=== PATIENT | female | born 1995 ===

== ENCOUNTER 2022-12-25 23:32 | Emergency (ER) | payer OTHER ==
[2022-12-25] MEDS ORDERED: NA CHLORIDE 0.9% 1,000 ML ONE (23:51)
[2022-12-25 23:58] LABS: Absolute Lymphocytes (CBC) 1.6 K/uL (0.7-4.9); Hematocrit 41.2 % (36.0-45.0); MCV 87.2 fL (80-100); MPV 7.7 fL (7.6-11.3); RBC Red Blood Cell Count 4.72 M/uL (3.86-4.86)
[2022-12-26 00:01] LABS: Specific Gravity 1.003 (1.005-1.030)
[2022-12-26 00:02] LABS: Specific Gravity < 1.005 (1.005-1.030); Urine Bacteria <20 /HPF (<20); Urine Bilirubin NEGATIVE (Negative); Urine Blood Negative (Negative); Urine Clarity Turbid (Clear); Urine Color Colorless (Yellow); Urine Glucose NEGATIVE (Negative); Urine Protein NEGATIVE (Negative); Urine RBC <5 /HPF (None Seen); Urine Urobilinogen Normal (Normal)
[2022-12-26 00:08] LABS: Barbiturates NEGATIVE (NEGATIVE); Benzodiazepines NEGATIVE (NEGATIVE); Cocaine NEGATIVE (NEGATIVE); METHAMPHETAM NEGATIVE (NEGATIVE); Methadone NEGATIVE (NEGATIVE); Opiates NEGATIVE (NEGATIVE); Phencyclidine NEGATIVE (NEGATIVE); THC Cannibis NEGATIVE (NEGATIVE)
[2022-12-26 00:21] LABS: ALT/SGPT 27 U/L (13-56); AST/SGOT 22 U/L (15-37); Albumin 4.7 g/dL (3.4-5.0); Alkaline Phosphatase 70 U/L (45-117); BUN Blood Urea Nitrogen 5 mg/dL (7-18); Bicarbonate 21 mEq/L (21-32); Bilirubin Direct < 0.1 mg/dL (0-0.2); Bilirubin Indirect, Calculated ND mg/dL (0.2-0.8); Bilirubin Total 0.2 mg/dL (0.2-1.0); Glomerular Filtration Rate 91 ml/min (=/>90); Glucose Level 118 mg/dL (74-106); Potassium 3.2 mEq/L (3.5-5.1); Protein, Total 8.6 g/dL (6.4-8.2); Sodium Level 144 mEq/L (136-145)
[2022-12-26 00:56] LABS: Protime INR 0.81
--- NOTE | 2022-12-26 02:53 | EDPHYS ---
Physician Documentation [facility] Name: Magalis Galdamez Age: 27 yrs Sex: Female : 1995 Arrival Date: 12/25/2022 Time: 23:32 Bed 15 Private MD: ED Physician Heri Horan HPI: 12/25 23:39 This 27 yrs old Female presents to ER via Unassigned with complaints of sp4 intoxication, suicidal thoughts . 23:40 . sp4 12/26 02:40 27-year-old female who presents with EMS for alcohol intoxication and depression. sp4 Patient has made some suicidal statements to the police and EMS. Patient is currently moving into a new apartment and away from an unstable housing situation. Patient states she had a bottle of wine. She denied any prior suicide attempts. At this time she denies suicidal ideation or plan. Patient was asked if she would like to be assessed for admission to psychiatric hospital and she has denied that she wants to be sent to psychiatric hospital. . 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 - Social history:: Smoking status: Reported history of juuling and/or vaping. Patient uses alcohol, only on a social basis. Patient/guardian denies using street drugs. - Family history:: not pertinent. ROS: 12/26 02:40 Constitutional: Negative for fever, chills, and weight loss, Eyes: Negative for injury, sp4 pain, redness, and discharge, ENT: Negative for injury, pain, and discharge, Neck: Negative for injury, pain, and swelling, Cardiovascular: Negative for chest pain, palpitations, and edema, Respiratory: Negative for shortness of breath, cough, wheezing, and pleuritic chest pain, Abdomen/GI: Negative for abdominal pain, nausea, vomiting, diarrhea, and constipation, Back: Negative for injury and pain, : Negative for injury, bleeding, discharge, and swelling, MS/Extremity: Negative for injury and deformity, Skin: Negative for injury, rash, and discoloration, Neuro: Negative for headache, weakness, numbness, tingling, and seizure, Psych: Positive for alcohol intoxication, negative for suicidal ideation or plan Allergy/Immunology: Negative for hives, rash, and allergies Endocrine: Negative for neck swelling, polydipsia, polyuria, polyphagia, and weight changes Hematologic/Lymphatic: Negative for swollen nodes, abnormal bleeding, and unusual bruising Exam: 02:40 Constitutional: This is a well developed, well nourished patient who is awake, alert, sp4 and in no acute distress. Patient is moderately intoxicated Head/Face: Normocephalic, atraumatic. Eyes: Pupils equal round and reactive to light, extra-ocular motions intact. Lids and lashes normal. Conjunctiva and sclera are not injected. Cornea within normal limits. Periorbital areas with no swelling, redness, or edema. ENT: Nares patent. No nasal discharge, no septal abnormalities noted. Tympanic membranes are normal and external auditory canals are clear. Oropharynx with no redness, swelling, or masses, exudates, or evidence of obstruction, uvula midline. Mucous membranes moist. Neck: Trachea midline, no thyromegaly or masses palpated, and no cervical lymphadenopathy. Supple, full range of motion without nuchal rigidity, or vertebral point tenderness. Chest/axilla: Normal chest wall appearance and motion. Nontender with no deformity. No lesions are appreciated. Cardiovascular: Regular rate and rhythm with a normal S1 and S2. No gallops, murmurs, or rubs. Normal PMI, no JVD. No pulse deficits. Respiratory: Lungs have equal breath sounds bilaterally, clear to auscultation and percussion. No rales, rhonchi or wheezes noted. No increased work of breathing, no retractions or nasal flaring. Abdomen/GI: Soft, non-tender, with normal bowel sounds. No distension or tympany. No guarding or rebound. No evidence of tenderness throughout. Back: No spinal tenderness. No costovertebral tenderness. Skin: Warm, dry with normal turgor. Normal color with no rashes, no lesions, and no evidence of cellulitis. MS/ Extremity: Pulses equal, no cyanosis. Neurovascular intact. Full, normal range of motion. Neuro: Awake and alert, GCS 15, oriented to person, place, time, and situation. Cranial nerves II-XII grossly intact. Motor strength 5/5 in all extremities. Sensory grossly intact. Psych: Awake, alert, with orientation to person, place. Intoxication limits examination, patient denied suicidal ideation or plan. 02:40 ECG was reviewed by the Attending Physician. EKG time 2359, EKG reveals sinus rhythm sp4 with a rate of 100, no ST elevation or depression, no ectopy overall normal EKG Vital Signs: 00:02 BP 129 / 79; Pulse 110; Resp 19 S; Temp 98.4(TE); Pulse Ox 98% on R/A; Weight 61.23 kg ll3 (R); Height 5 ft. 4 in. (R); 03:44 BP 123 / 71; Pulse 76; Resp 16; Pulse Ox 98% on R/A; ll3 00:02 Body Mass Index 23.17 (61.23 kg, 162.56 cm) ll3 MDM: 12/25 23:40 Patient medically screened. sp4 12/26 02:40 Differential Diagnosis altered mental status. Differential Diagnosis Alcohol sp4 intoxication, substance abuse, depression, anxiety. Data reviewed: vital signs, nurses notes. Data reviewed: lab test result(s), CBC, electrolytes, hepatic panel, urinalysis, urine drug screen, UPT: negative. 02:49 ED course: Patient's labs reveal alcohol level 222, otherwise is unremarkable. Patient sp4 explicitly denied homicidal or suicidal ideation or plan. Patient was asked if she would like to be transferred to psychiatric hospital and she has declined help at this time. Patient states she would like to go home. Since there is no homicidal or suicidal ideation patient is stable for discharge home at this time if someone can pick her up from the emergency room. . 12/25 23:40 Order name: Acetaminophen; Complete Time: [facility] 12/25 23:40 Order name: Basic Metabolic Panel; Complete Time: [facility] 12/25 23:40 Order name: CBC with Diff; Complete Time: [facility] 12/25 23:40 Order name: ETOH Level; Complete Time: [facility] 12/25 23:40 Order name: Hepatic Function; Complete Time: [facility] 12/25 23:40 Order name: PT-INR; Complete Time: :58 4 12/25 23:40 Order name: Test, Urine; Complete Time: :58 4 12/25 23:40 Order name: Ptt, Activated; Complete Time: :58 4 12/25 23:40 Order name: Salicylate; Complete Time: :58 sp4 12/25 23:40 Order name: Urinalysis w/ reflexes; Complete Time: :58 sp4 12/25 23:40 Order name: Urine Drug Screen; Complete Time: :58 4 12/25 23:40 Order name: EKG; Complete Time: 23:41 4 12/25 23:40 Order name: EKG - Nurse/Tech; Complete Time: 23:55 sp4 12/25 23:40 Order name: IV Saline Lock; Complete Time: 23:48 4 12/25 23:40 Order name: Labs collected and sent; Complete Time: 23:48 4 12/25 23:40 Order name: Suicide Precautions; Complete Time: 23:55 4 12/25 23:40 Order name: Suicide Screening ([place]); Complete Time: 23:55 4 EC:40 Rate is 100 beats/min. Rhythm is regular, Normal Sinus Rhythm. QRS [place] is Normal. [place] sp4 interval is normal. QRS interval is normal. QT interval is normal. T waves are Normal. No ST changes noted. Clinical impression: Normal ECG. Interpreted by me. Administered Medications: 12/25 23:53 Drug: NS 0.9% IV 1000 ml Route: IV; Rate: 1 bolus; Site: right antecubital; mb9 12/26 01:30 Follow up: Response: No adverse reaction; IV Status: Completed infusion; IV Intake: ll3 1000ml Disposition Summary: 12/26/22 02:52 Discharge Ordered Location: Home sp4 Problem: new sp4 Symptoms: have improved sp4 Condition: Stable sp4 Diagnosis - Alcohol use, unspecified with intoxication, uncomplicated sp4 - Emotional upset sp4 Followup: sp4 - With: Oswaldo Pelletier MD - When: 7 - 10 days - Reason: Recheck today's complaints Discharge Instructions: - Discharge Summary Sheet sp4 - Alcohol Intoxication, [id number] sp4 Forms: - [email or web address] sp4 Signatures: Dispatcher [employer] Renetta Olmstead RN RN lg3 Fatoumata Ortega RN RN mb9 Heri Horan MD MD sp4 Rebecca Mckeon RN ll3
--- NOTE | 2022-12-26 02:53 | ER ---
Nurse's Notes [facility] Name: Magalis Galdamez Age: 27 yrs Sex: Female : 1995 Arrival Date: 12/25/2022 Time: 23:32 Bed 15 Private MD: Diagnosis: Alcohol use, unspecified with intoxication, uncomplicated;Emotional upset Presentation: 12/25 23:39 Chief complaint: EMS states: toned out by PD for suicidal PT. 3rd constitution party stated that PT lg3 has stated that she wanted to kill herself and she would do so by hanging. PT states that she is in the process of moving in with Ex and a verbal altercation stated with best friend. PT became mad and upset so she began drinking. PT admits to drinking an entire bottle of wine and probably said she was going to kill herself but doesn't remember. Coronavirus screen: Client denies travel out of the [place] in the last 14 days. At this time, the client does not indicate any symptoms associated with coronavirus-19. Ebola Screen: No symptoms or risks identified at this time. Risk Assessment: Do you want to hurt yourself or someone else? Patient reports desire/thoughts of hurting themselves or someone else. Provider notified. Onset of symptoms was December 25, 2022. 23:39 Method Of Arrival: EMS: [facility] 23:39 Acuity: ALEXANDRA 2 lg3 12/26 00:27 Initial Sepsis Screen: Does the patient meet any 2 criteria? HR > 90 bpm. Yes Does the ll3 patient have a suspected source of infection? No. Patient's initial sepsis screen is negative. Triage Assessment: 12/25 23:43 General: Appears in no apparent distress. comfortable, Behavior is cooperative, crying, lg3 flat. Pain: Denies pain. EENT: No deficits noted. No signs and/or symptoms were reported regarding the EENT system. Neuro: No deficits noted. Ramos Agitation-Sedation Scale (RASS): 0 - Alert and Calm Level of Consciousness is awake, alert, obeys commands, Oriented to person, place, time, situation. Cardiovascular: No deficits noted. Respiratory: No deficits noted. Airway is patent Respiratory effort is even, unlabored, Respiratory pattern is regular, symmetrical. GI: No deficits noted. No signs and/or symptoms were reported involving the gastrointestinal system. : No deficits noted. No signs and/or symptoms were reported regarding the genitourinary system. Derm: No deficits noted. No signs and/or symptoms reported regarding the dermatologic system. Musculoskeletal: No deficits noted. No signs and/or symptoms reported regarding the musculoskeletal system. Circulation, motion, and sensation intact. Range of motion: intact in all extremities. 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 - Social history:: Smoking status: Reported history of juuling and/or vaping. Patient uses alcohol, only on a social basis. Patient/guardian denies using street drugs. - Family history:: not pertinent. Screenin/30 00:27 [facility] ED Fall Risk Assessment (Adult) History of falling in the last 3 months, ll3 including since admission No falls in past 3 months (0 pts) Confusion or Disorientation No (0 pts) Intoxicated or Sedated No (0 pts) Impaired Gait No (0 pts) Mobility Assist Device Used No (0 pt) Altered Elimination No (0 pt) Score/Fall Risk Level 0 - 2 = Low Risk Oriented to surroundings, Maintained a safe environment, Educated pt \T\ family on fall prevention, incl call for assistance when getting out of bed. Abuse screen: Denies threats or abuse. Denies injuries from another. Nutritional screening: No deficits noted. Tuberculosis screening: No symptoms or risk factors identified. Assessment: 00:28 General: Appears comfortable, Behavior is cooperative, agitated, anxious, crying. Pain: ll3 Denies pain. Neuro: Level of Consciousness is awake, alert, obeys commands, Oriented to person, place, time, situation. Cardiovascular: Patient's skin is warm and dry. Respiratory: Respiratory effort is even, unlabored, Respiratory pattern is regular, symmetrical. Derm: Skin is pink, warm \T\ dry. Vital Signs: 00:02 BP 129 / 79; Pulse 110; Resp 19 S; Temp 98.4(TE); Pulse Ox 98% on R/A; Weight 61.23 kg ll3 (R); Height 5 ft. 4 in. (R); 03:44 BP 123 / 71; Pulse 76; Resp 16; Pulse Ox 98% on R/A; ll3 00:02 Body Mass Index 23.17 (61.23 kg, 162.56 cm) ll3 ED Course: 12/25 23:39 Patient arrived in ED. lg3 23:39 Heri Horan MD is Attending Physician. sp4 23:39 Safety Checks: Personal items have been removed. The door is open or patient has been ll3 placed in a hallway bed/chair. There are no family/friend visitors at this time Sitter present at this time. 23:39 Patient has correct armband on for positive identification. Bed in low position. Call ll3 light in reach. Side rails up X 1. Adult w/ patient. Sitter at bedside. 23:43 Triage completed. lg3 23:43 Arm band placed on right wrist. lg3 23:47 Inserted saline lock: 20 gauge in right antecubital area, using aseptic technique. rv1 Blood collected. 23:48 Acetaminophen Sent. rv1 23:48 Basic Metabolic Panel Sent. rv1 23:48 CBC with Diff Sent. rv1 23:48 ETOH Level Sent. rv1 23:48 Hepatic Function Sent. rv1 23:48 PT-INR Sent. rv1 23:48 Test, Urine Sent. rv1 23:48 Ptt, Activated Sent. rv1 23:48 Salicylate Sent. rv1 23:48 Urinalysis w/ reflexes Sent. rv1 23:48 Urine Drug Screen Sent. rv1 12/26 00:02 Rebecca Mckeon, RN is Primary Nurse. ll3 00:28 No provider procedures requiring assistance completed. ll3 01:42 Appears to be sleeping. ll3 02:51 Oswaldo Pelletier MD is Referral Physician. sp4 03:43 IV discontinued, intact, bleeding controlled, No redness/swelling at site. Pressure ll3 dressing applied. Administered Medications: 12/25 23:53 Drug: NS 0.9% IV 1000 ml Route: IV; Rate: 1 bolus; Site: right antecubital; mb9 12/26 01:30 Follow up: Response: No adverse reaction; IV Status: Completed infusion; IV Intake: ll3 1000ml Medication: 00:28 VIS not applicable for this client. ll3 Intake: 01:30 IV: 1000ml; Total: 1000ml. ll3 Outcome: 02:52 Discharge ordered by . sp4 03:43 Discharged to home ambulatory, with family, with friend. ll3 03:43 Condition: stable 03:43 Discharge instructions given to patient, Instructed on discharge instructions, follow up and referral plans. Demonstrated understanding of instructions, follow-up care. 03:50 Patient left the ED. ll3 Signatures: Renetta Ambrosio, RN RN lg3 Rebecca Mckeon RN RN ll3 Jordan, Fatoumata Hidalgo RN RN mb9 Maryan Curiel rv1 Heri Horan MD MD sp4 Corrections: (The following items were deleted from the chart) 00:27 00:02 BP 129 / 79; Pulse 110bpm; Resp 19bpm; Spontaneous; Pulse Ox 98% RA; Temp 98.4F ll3 Temporal; ll3 03:49 03:44 BP 100 / 51; Pulse 76bpm; Resp 16bpm; Pulse Ox 98% RA; ll3 ll3
[2022-12-26 04:13] VITALS: TEMP 98.4; O2SAT 98
[2022-12-26 04:14] VITALS: BP 123/71
--- NOTE | 2022-12-26 08:48 | EKG ---
Test Date: 2022-12-25 Test Time: 23:59:39 Creative Specialist: COLT MEASUREMENT RESULTS: Intervals: Rate: 100 AK: 124 QRSD: 92 QT: 360 QTc: 464 [place]: P: 75 AK: 124 QRS: 76 T: 54 INTERPRETIVE STATEMENTS: Normal sinus rhythm Normal ECG No previous ECG available for comparison Electronically Signed On 12-26-22 08:47:23 CDT by John Del Real
== END 2022-12-26 03:50 | disposition home or self-care (01) ==
LOC: ER 23:32
DX: F10.929 Alcohol use, unspecified with intoxication, unspecified (principal); R45.7 State of emotional shock and stress, unspecified; F32.A Depression, unspecified
CPT/HCPCS: 96361; 93005; 85025; 81001; 80048; 36415; 81025; 85610; 80076; 85730; 80307; 96360; 99285; 80143; 80179; 82077; J7030